=== PATIENT | male | born 1995 | race Hispanic/Latino ===

== ENCOUNTER → 2017-09-15 | Outpatient (CLI) | payer OTHER ==
--- NOTE | 2017-09-15 14:12 | Diagnostic Imaging Report ---
PROCEDURE:RENAL DOPPLER ULTRASOUND COMPARISON:None. INDICATIONS:RENAL ARTERY STENOSIS FINDINGS: Multiple sagittal and axial images were obtained of the right and left kidneys. The right kidney measures 9.6 cm. The cortical thickness is approximately 4.8 cm. It is of normal echogenicity, without evidence of focal masses, hydronephrosis, or stones The left kidney measures 10.8 cm. The cortical thickness is approximately 5.3 cm. It is of normal echogenicity, without evidence of focal masses, hydronephrosis, or shadowing renal calculi. The highest right main renal artery PSV is 79.1 cm/sec, highest right segmental artery PSV is 81.8 cm/sec. These are within normal limits. The highest left main renal artery PSV is 109 cm/sec, highest left segmental artery PSA is 83.2 cm/sec, These are within normal limits. The abdominal aorta PSV is 71.5 cm/sec. The right renal artery/aorta ratio is within normal limits at 1.1. The left renal artery/aorta ratio is within normal limits at 1.5. The visualized portions of the bladder are unremarkable. CONCLUSION: No evidence of renal artery stenosis. Dictated by: Sergey Poe M.D. on 09/15/2017 at 14:17 Electronically approved by: Sergey Poe M.D. on 09/15/2017 at 14:17
== END ==
LOC: EDSEX 12:09 → US 12:09
PROVIDERS: ATTEND Internal Medicine
DX: I70.1 Atherosclerosis of renal artery (principal)
CPT/HCPCS: 93976